=== PATIENT | male | born 1940 | race Caucasian/White ===

== ENCOUNTER 2021-03-23 09:33 | Emergency (ER) | payer MEDICARE, OTHER, SELFPAY ==
--- NOTE | ~2021-03-23 | US_ITS ---
EXAMINATION: US VENOUS ULTRASOUND WITH DOPPLER LOWER EXTREMITY, RIGHT CLINICAL INFORMATION: Pain COMPARISON: None TECHNIQUE: Ultrasound of the deep veins is performed from the hip to the calf with compression sonography and color and pulse Doppler assessment. Spectral analysis with color-flow imaging is performed. FINDINGS: There is normal venous compression and respiratory variation and augmented flow. The visualized common femoral vein, superficial femoral vein, profunda femoral vein, popliteal vein, and the trifurcation region shows no evidence of deep venous thrombosis. There is no significant popliteal fossa cyst. US/US venous duplex LE RT IMPRESSION: No DVT demonstrated in the right lower extremity.
--- NOTE | ~2021-03-23 | XR_ITS ---
EXAMINATION: XR ANKLE, RIGHT CLINICAL INFORMATION: Pain COMPARISON: None TECHNIQUE: AP, lateral, and mortise views of the right ankle. FINDINGS: The ankle mortise appears intact. No talar tilt is seen. No widening of the medial joint space is noted. There is some spurring present about the medial malleolus. Vascular calcifications are present. Calcaneal spurs at sites of insertion of a Achilles and plantar tendons noted. Small bony density seen medial aspect of the talar bone which may be vascular in nature or secondary to an avulsion injury which could be acute or chronic in nature. There is some soft tissue swelling present about the ankle. XR/XR ankle RT min 3V IMPRESSION: No definite acute fracture or dislocation of the ankle identified. Calcaneal spurs. Probable vascular calcifications or less likely avulsion injury of acute or chronic etiology medial aspect of the talar bone. Clinical correlation is suggested to site of pain.
[2021-03-23 10:30] VITALS: BP 140/59; PULSE 71; RESP 16; TEMP 35.6; O2SAT 97; BMI 25.5
--- NOTE | 2021-03-23 10:36 | ED.GENADULT ---
HPI - General Adult General Chief complaint: Extremity Injury, Lower Stated complaint: ankle injury Time Seen by Provider: 03/23/21 10:34 Source: patient Limitations: no limitations History of Present Illness HPI narrative: Patient presents to the ER complaining of right ankle pain. Patient states while walking behind his lawnmower yesterday he began to have sharp pain in the ankle heel and foot. Pain extended up to his right calf. Patient denies any overt trauma. Patient has longstanding history of hypertension hyperlipidemia and a history of COPD. Patient this time denies fever chest pain shortness of breath. Pain is 7/10 and increases with palpation and positive swelling was noted by the patient. Patient denies any history of gouty arthritis. Symptoms are [id number]. No previous episodes with this extremity in the past. Although the patient did state he is losing bone density. Related Data Previous Rx's Medication Instructions Recorded ibuprofen 400 mg tablet 400 mg PO TID PRN #20 tab 03/23/21 tramadol 50 mg tablet 50 mg PO BID PRN #10 tab 03/23/21 Allergies Allergy/AdvReac Type Severity Reaction Status Date / Time codeine Allergy Unknown Verified 03/23/21 10:30 Review of Systems Review of Systems: Constitutional : No Weight loss, No Fever, No Chills, ENT: Denies sore throat Cardiovascular : No Chest Pain, No SOB, No Dyspnea on Exertion Respiratory : No Cough, No Sputum, No Wheezing Gastrointestinal : No Nausea, No Vomiting, No Diarrhea Musculoskeletal : Positive right ankle foot and calf pain. Positive swelling. Neuro : No Weakness, No Numbness, No Paresthesias, No Loss of Consciousness, No Dizziness, No Headache Psych : No Anxiety/Panic, No Depression, No SI/HI/AH/VH, No Social Issues, Heme/Lymph: No Bruising, No Bleeding,No Lymphadenopathy Endocrine : No Polyuria, No Polydipsia, No Temperature Intolerance PMF Past Medical History Attestation statement: The following information was validated with the patient. Medical History COPD (chronic obstructive pulmonary disease) High cholesterol HTN (hypertension) Social History Social History Advance Directives: No Advance Directives Information Provided: No Physical Exam Vital Signs: Vital Signs: Last Vital Signs Temp 96.1 F L 03/23/21 10:30 Pulse 71 03/23/21 10:30 Resp 16 03/23/21 10:30 BP 140/59 H 03/23/21 10:30 Pulse Ox 97 03/23/21 10:30 Body Mass Index 25.5 vital signs have been reviewed as normal and appeared to be correct. Blood pressure normal. Heart rate normal. Respiration rate normal. Temperature normal. Oxygen saturation normal. Appearance: Alert. Oriented X3. No acute distress. Head: Normal external exam. Normocephalic. Atraumatic. Eyes: PERRLA. EOMI. ENT: Pharynx normal. Uvula midline. Moist mucous membranes. Neck: Soft full range of motion, no JVD CVS: Heart regular rate and rhythm no murmurs and rubs Respiratory: Breath sounds are clear to auscultation bilaterally. No accessory muscle use noted. Abdomen: Soft nontender no rebound or guarding positive bowel sounds Back: No CVA tenderness. Full range of motion noted. Skin: Right lower extremity Minimal erythema medial aspect ankle slight edema noted no lymphangitis noted. Extremities: Positive tenderness lateral malleolus of all right ankle slight tenderness into the calf positive sensation positive pulses Neuro: Oriented X 3. No motor deficit. No sensory deficit. Reflexes normal. Course Course Course Narrative: Right ankle fracture Sprain Arthritis Right lower extremity cellulitis Right lower extremity DVT Symptoms seem to be more consistent with musculoskeletal symptoms will check duplex and right ankle x-ray Case discussed with DR Perera symptoms likely related to calcaneal spurs. Family has a equipment maintenance tech advised to follow-up. Rest ice elevation. Medical Decision Making Imaging Data ankle: Radiologist's impression: [address] [address] XRay Report Signed Patient: Dane Sousa MR#: [id number] : 1940 Acct:[id number] Age/Sex: 80 / M ADM Date: 03/23/21 Loc: HO.ED Attending Dr: Ordering Physician: Gustavo Brice Date of Service: 03/23/21 Procedure(s): XR ankle RT min 3V Accession Number(s): [id number] cc: Gustavo Brice ~ EXAMINATION: XR ANKLE, RIGHT CLINICAL INFORMATION: Pain? COMPARISON: None? TECHNIQUE: AP, lateral, and mortise views of the right ankle. FINDINGS: The ankle mortise appears intact. No talar tilt is seen. No widening of the medial joint space is noted. There is some spurring present about the medial malleolus. Vascular calcifications are present. Calcaneal spurs at sites of insertion of a Achilles and plantar tendons noted. Small bony density seen medial aspect of the talar bone which may be vascular in nature or secondary to an avulsion injury which could be acute or chronic in nature. There is some soft tissue swelling present about the ankle. XR/XR ankle RT min 3V IMPRESSION: No definite acute fracture or dislocation of the ankle identified. ? Calcaneal spurs. ? Probable vascular calcifications or less likely avulsion injury of acute or chronic etiology medial aspect of the talar bone. Clinical correlation is suggested to site of pain. Dictated By: Dino Jones MD Signed By: <Electronically signed by Dino Jones MD in [place]> 03/23/21 1108 DD/ 1035 TD/TT:? Hearing Screener: GABRIELA Venous US: Radiologist's impression: [address] [address] Ultrasound Report Signed Patient: Dane Sousa MR#: [id number] : 1940 Acct:[id number] Age/Sex: 80 / M ADM Date: 03/23/21 Loc: .ED Attending Dr: Ordering Physician: Gustavo Brice Date of Service: 03/23/21 Procedure(s): US venous duplex LE RT Accession Number(s): [id number] cc: Gustavo Brice ~ EXAMINATION:? US VENOUS ULTRASOUND WITH DOPPLER LOWER EXTREMITY, RIGHT CLINICAL INFORMATION:? Pain COMPARISON:? None TECHNIQUE: Ultrasound of the deep veins is performed from the hip to the calf with compression sonography and color and pulse Doppler assessment. Spectral analysis with color-flow imaging is performed. FINDINGS: There is normal venous compression and respiratory variation and augmented flow. The visualized common femoral vein, superficial femoral vein, profunda femoral vein, popliteal vein, and the trifurcation region shows no evidence of deep venous thrombosis. ? There is no significant popliteal fossa cyst. US/US venous duplex LE RT IMPRESSION: No DVT demonstrated in the right lower extremity. Dictated By: Lena Paul MD Signed By: <Electronically signed by Lena Paul MD in [place]> 03/23/21 1124 DD/ 1035 TD/TT:? Hearing Screener: ANDI Discharge Plan Discharge Clinical Impression: Calcaneal spur Patient Disposition: Home, Self-Care Instructions: Heel Spur (ED) Additional Instructions: It is recommended to follow up with her equipment maintenance tech Rest ice elevation Medication as directed Prescriptions: New tramadol 50 mg tablet 50 mg PO BID PRN (Reason: severe pain (scale score 7-10)) Qty: 10 RF: 0 ibuprofen 400 mg tablet 400 mg PO TID PRN (Reason: moderate pain (scale score 5-6)) Qty: 20 RF: 0
== END 2021-03-23 12:03 | disposition home or self-care (01) ==
PROVIDERS: Emergency Provider Emergency Medicine; PCP Internal Medicine
DX: M77.31 Calcaneal spur, right foot (principal); M25.571 Pain in right ankle and joints of right foot; M79.661 Pain in right lower leg; I10 Essential (primary) hypertension
CPT/HCPCS: 73610; 93971; 99283; 99284

== ENCOUNTER 2023-02-09 10:34 | Emergency (ER) | payer MEDICARE, OTHER, SELFPAY ==
--- NOTE | ~2023-02-09 | XR_ITS ---
EXAMINATION: XR CHEST CLINICAL INFORMATION: Cough and shortness of breath COMPARISON: Previous chest x-ray most recent December 2018 TECHNIQUE: 2 views of the chest were obtained. FINDINGS: The cardiac silhouette does not appear enlarged. There are increased central hilar markings suggestive of pulmonary venous redistribution. The lungs are otherwise clear. There are small bilateral pleural effusions. Findings are suggestive of mild CHF. There are degenerative changes of the spine. XR/XR chest 2V IMPRESSION: Mild CHF.
[2023-02-09 11:10] VITALS: BP 143/63; PULSE 61; RESP 20; TEMP 36; O2SAT 98; BMI 25.1
--- NOTE | 2023-02-09 11:12 | ED.GENADULT ---
HPI - General Adult General Chief complaint: General Medical Stated complaint: pneumonia ? Time Seen by Provider: 02/09/23 17:22 Source: patient, family (His ), RN notes reviewed and old records reviewed Mode of arrival: ambulatory Limitations: no limitations History of Present Illness HPI narrative: 82-year-old male presents for evaluation of shortness of breath. Patient reports a history of COPD, hypertension. He reports that 10 days ago he was diagnosed with pneumonia as he was having increased cough and shortness of breath. He reports that he did have a chest x-ray confirming pneumonia at his PCP office. He was treated with doxycycline and prednisone His symptoms have not improved. He reports that he finished all the antibiotics and steroids His symptoms are worse with lying down he also states they seem to be worse after eating pain Complains of shortness of breath and a cough Related Data Previous Rx's Medication Instructions Recorded ibuprofen 400 mg tablet 400 mg PO TID PRN moderate pain 03/23/21 (scale score 5-6) #20 tabs tramadol 50 mg tablet 50 mg PO BID PRN severe pain 03/23/21 (scale score 7-10) #10 tabs furosemide 20 mg tablet (Lasix) 20 mg PO DAILY #7 tabs 02/09/23 Allergies Allergy/AdvReac Type Severity Reaction Status Date / Time codeine Allergy Unknown Verified 03/23/21 10:30 Review of Systems Constitutional: Constitutional: Denies chills, Denies fever(s) and Reports weakness Cardiovascular: Cardiovascular: Denies chest pain, Reports dyspnea and Reports dyspnea on exertion Respiratory: Respiratory: Reports chest congestion, Reports cough, Reports dyspnea and Reports dyspnea on exertion Gastrointestinal: Gastrointestinal: Denies abdominal pain, Denies nausea and Denies vomiting Genitourinary: Genitourinary: Denies dysuria Musculoskeletal: Musculoskeletal: Denies back pain Integumentary/Breasts: Skin/Breast: Denies erythema Neurologic: Reports weakness PMFSH Past Medical History Medical History COPD (chronic obstructive pulmonary disease) High cholesterol HTN (hypertension) Social History Social History Alcohol intake: former Smoked in Last 30 Days: No Use of substances other than those prescribed or required for medical reasons: No Advance Directives: No Advance Directives Information Provided: No Physical Exam ED Vital Signs: Vital Signs - 24 hr 02/09/23 11:10 02/09/23 17:59 Temperature 96.8 F 97.7 F Pulse Rate 61 67 Respiratory Rate 20 18 Blood Pressure 143/63 H 153/75 H Pulse Oximetry 98 94 Oxygen Delivery Method Room Air Room Air BMI result Body Mass Index 25.1 Const General: healthy appearing, comfortable, no acute distress, alert and awake Nutritional Appearance: well nourished Orientation/consciousness: patient oriented x3 HENMT Head: Yes normocephalic and Yes atraumatic Eyes Eyelids: Yes eyelids normal Conjunctivae: conjunctivae normal Sclerae: sclerae normal Corneas: corneas normal Pupils: Equal, round and reactive pupils present EOM: EOMs intact bilaterally Neck Neck: Yes full ROM Resp Effort & Inspection: normal respiratory effort, able to speak in complete sentences, no audible wheezes and not labored Auscultation: clear to auscultation bilaterally Cardio Other: No significant lower extremity edema Rate: regular rate Rhythm: regular rhythm Skin General skin exam: no rashes or lesions noted and elasticity normal Neuro General: patient oriented x3 Cranial nerves: Yes Equal, round and reactive pupils present and Yes Bilaterally intact EOM present Cognition (Neuro): normal cognition Extrem Other: Moving all extremities well without any obvious deformities Course Course Course Narrative: RME performed by Silvana Colunga PA-C. Patient is an 82 year old assigned male at presenting to the emergency department with a cough and possible continued pneumonia. Patient states that 3 weeks ago he began to have a cough and was diagnosed with pneumonia, finished his antibiotics and his steroids but the cough has returned and continues to bother him. Patient states his breathing is significantly worse when he lies flat. Labs, imaging, and swabs ordered. Patient placed back in the waiting room pending room availability and results. Medications Administered Discontinued Medications Generic Name Dose Route Start Last Admin Trade Name Freq PRN Reason Stop Dose Admin Furosemide 20 mg 02/09/23 17:32 02/09/23 18:02 Furosemide 20 Mg Tablet PO 02/09/23 17:33 20 mg ONCE ONE Administration Protocol Medical Decision Making Medical Decision Making MDM Narrative: 82-year-old male presents for evaluation of increased cough, shortness of breath exertion. His workup is consistent with mild congestive heart failure. He has small bilateral pleural effusions, symptoms are worse with lying down. He is on hydrochlorothiazide but not on Lasix. Will start the patient on furosemide. His vital signs are stable, his oxygen saturation is 98% on room air. Chest x-ray does not show any evidence of persistent pneumonia. He is not wheezing on exam. He is stable for discharge Differential Diagnosis Differential Diagnoses: The differential diagnosis associated with the presentation includes Congestive heart failure Bronchitis Pneumonia Upper respiratory infection COPD Admission/Observation Consideration of admission/observation: Escalation of care including admission/observation considered Lab Data MDM Lab Attestation statement: I reviewed the patient's lab results. No leukocytosis, and mild anemia with a hemoglobin of 12.4 hematocrit of 37.2. Electrolytes and renal function within normal limits 02/09/23 11:49 02/09/23 11:14 Labs: Lab Results 02/09/23 02/09/23 02/09/23 Range/Units 11:14 11:14 11:14 WBC (4.8-10.8) X10*3/uL RBC (4.60-5.80) X10*6/uL Hgb (14.0-18.0) g/dl Hct (42.0-52.0) % MCV (80.0-98.0) fL MCH (27.0-33.0) pg MCHC (31.0-36.0) g/dl RDW (11.0-16.0) % Plt Count (160-400) X10*3/uL MPV (9.4-12.4) fL Immature Gran % (Auto) (0.0-0.4) % Neut % (Auto) (45-73) % Lymph % (Auto) (20-40) % [place] % (Auto) (2-11) % Eos % (Auto) (0-4) % Baso % (Auto) (0-2) % Lymph # (Auto) (1.2-4.9) X10*3/uL [place] # (Auto) (0.1-1.2) X10*3/uL Eos # (Auto) (0.0-0.4) X10*3/uL Baso # (Auto) (0.0-0.2) X10*3/uL Abs Immat Gran (auto) (0.00-0.03) X10*3/uL Absolute Neuts (auto) (2.0-8.3) x10*3/uL Absolute Nucleated RBC (0.0-0.012) X10*3/uL Nucleated RBC % (auto) (0.0-0.2) /100WBC VBG pH (7.32-7.43) VBG pCO2 mmHg VBG pO2 mmHg VBG HCO3 (22-26) mmol/L VBG O2 Saturation % VBG Base Excess mmol/L Sodium 135 (135-145) mmol/L Potassium 4.1 (3.3-5.1) mmol/L Chloride 101 (96-108) mmol/L Carbon Dioxide 28 (22-29) mmol/L Anion Gap 10 L (12-20) BUN 15 (9-16) mg/dL Creatinine 1.18 (0.5-1.4) mg/dL Estim Creat Clear Calc 45.8 Estimated GFR 59 Random Glucose 99 (60-115) mg/dL Calcium 9.8 (8.4-10.2) mg/dL Magnesium 2.1 (1.6-2.6) mg/dL Total Bilirubin 0.6 (0.0-1.0) mg/dL AST 21 (5-37) U/L ALT 8 (0-40) U/L Alkaline Phosphatase 68 (39-117) U/L B-Natriuretic Peptide 29 (<100) pg/mL Total Protein 8.6 H (6.5-8.0) g/dL Albumin 3.6 (3.5-5.0) g/dL COVID-19 ([facility]) (Negative) COVID-19 Clin Com Influenza Type A ([facility]) Negative (Negative) Influenza Type B ([facility]) Negative (Negative) Influenza A & B Note See Note 02/09/23 02/09/23 02/09/23 Range/Units 11:14 11:49 11:49 WBC 8.7 (4.8-10.8) X10*3/uL RBC 3.90 L (4.60-5.80) X10*6/uL Hgb 12.4 L (14.0-18.0) g/dl Hct 37.7 L (42.0-52.0) % MCV 96.7 (80.0-98.0) fL MCH 31.8 (27.0-33.0) pg MCHC 32.9 (31.0-36.0) g/dl RDW 13.3 (11.0-16.0) % Plt Count 258 (160-400) X10*3/uL MPV 11.4 (9.4-12.4) fL Immature Gran % (Auto) 0.2 (0.0-0.4) % Neut % (Auto) 71.2 (45-73) % Lymph % (Auto) 13.1 L (20-40) % [place] % (Auto) 11.8 H (2-11) % Eos % (Auto) 2.2 (0-4) % Baso % (Auto) 1.5 (0-2) % Lymph # (Auto) 1.1 L (1.2-4.9) X10*3/uL [place] # (Auto) 1.0 (0.1-1.2) X10*3/uL Eos # (Auto) 0.2 (0.0-0.4) X10*3/uL Baso # (Auto) 0.1 (0.0-0.2) X10*3/uL Abs Immat Gran (auto) 0.02 (0.00-0.03) X10*3/uL Absolute Neuts (auto) 6.2 (2.0-8.3) x10*3/uL Absolute Nucleated RBC 0.000 (0.0-0.012) X10*3/uL Nucleated RBC % (auto) 0.0 (0.0-0.2) /100WBC VBG pH 7.42 (7.32-7.43) VBG pCO2 49 mmHg VBG pO2 29 mmHg VBG HCO3 32 H (22-26) mmol/L VBG O2 Saturation 40.0 % VBG Base Excess 6.7 mmol/L Sodium (135-145) mmol/L Potassium (3.3-5.1) mmol/L Chloride (96-108) mmol/L Carbon Dioxide (22-29) mmol/L Anion Gap (12-20) BUN (9-16) mg/dL Creatinine (0.5-1.4) mg/dL Estim Creat Clear Calc Estimated GFR Random Glucose (60-115) mg/dL Calcium (8.4-10.2) mg/dL Magnesium (1.6-2.6) mg/dL Total Bilirubin (0.0-1.0) mg/dL AST (5-37) U/L ALT (0-40) U/L Alkaline Phosphatase (39-117) U/L B-Natriuretic Peptide (<100) pg/mL Total Protein (6.5-8.0) g/dL Albumin (3.5-5.0) g/dL COVID-19 ([facility]) Negative (Negative) COVID-19 Clin Com See Note Influenza Type A ([facility]) (Negative) Influenza Type B ([facility]) (Negative) Influenza A & B Note Independent Interpretation I performed an independent interpretation of an: Plain X-Ray (Small bilateral pleural effusion, right greater than left) Radiology Impression Radiologist Impression: Mild CHF Independent Historian Clinical information obtained from an independent historian. History obtained from or confirmed by: Spouse External Record Review External record reviewed: Inpatient record and Outpatient record Tests considered The following testing was considered but not selected: CT scan of the chest, but I feel that mild consider heart failure adequately explains the patient's symptoms. He is anticoagulated on Eliquis already for DVT and is not tachypneic or hypoxic Chronic Conditions Patient?s care impacted by: Hypertension Discharge Plan Discharge Clinical Impression: Congestive heart failure Patient Disposition: Home, Self-Care Instructions: Heart Failure (ED) Additional Instructions: Your chest x-ray today showed fluid in your lung consistent with congestive heart failure. We do not see any pneumonia. This will still explain your cough and shortness of breath that is worse with lying down Take Lasix 20 mg daily You may stop your hydrochlorothiazide Call your doctor 1st thing Sunday morning You can tell them that you were diagnosed with congestive heart failure We recommend that you have an outpatient echocardiogram and/or stress test. To have blood work checked next week to check your electrolytes that can be affected by the water pill Lasix Prescriptions: New furosemide [Lasix] 20 mg tablet 20 mg PO DAILY Qty: 7 0RF No Action tramadol 50 mg tablet 50 mg PO BID PRN (Reason: severe pain (scale score 7-10)) Qty: 10 0RF ibuprofen 400 mg tablet 400 mg PO TID PRN (Reason: moderate pain (scale score 5-6)) Qty: 20 0RF
[2023-02-09 12:06] LABS: Venous Blood Gas Refer to POC result
[2023-02-09 12:23] LABS: Basophils Absolute Auto 0.1 X10*3/uL (0.0-0.2); Basophils Percent Auto 1.5 % (0-2); Eosinophils Absolute Auto 0.2 X10*3/uL (0.0-0.4); Eosinophils Percent Auto 2.2 % (0-4); Hematocrit 37.7 % (42.0-52.0); Hemoglobin 12.4 g/dl (14.0-18.0); Imm Gran Abs Auto 0.02 X10*3/uL (0.00-0.03); Imm Gran Pct Auto 0.2 % (0.0-0.4); Lymphocytes Absolute Auto 1.1 X10*3/uL (1.2-4.9); Lymphocytes Percent Auto 13.1 % (20-40); MANUAL DIFF FLAG NO; Mean Corpuscular HGB Conc 32.9 g/dl (31.0-36.0); Mean Corpuscular Hemoglobin 31.8 pg (27.0-33.0); Mean Corpuscular Volume 96.7 fL (80.0-98.0); Mean Platelet Volume 11.4 fL (9.4-12.4); Monocytes Percent Auto 11.8 % (2-11); Neutrophils Absolute Auto 6.2 x10*3/uL (2.0-8.3); Neutrophils Percent Auto 71.2 % (45-73); Platelet Count 258 X10*3/uL (160-400); Red Cell Distribution Width 13.3 % (11.0-16.0); White Blood Count 8.7 X10*3/uL (4.8-10.8)
[2023-02-09 12:37] LABS: Anion Gap 10 (12-20)
[2023-02-09 12:41] LABS: Alanine Aminotransferase 8 U/L (0-40); Albumin Level 3.6 g/dL (3.5-5.0); Alkaline Phosphatase 68 U/L (39-117); Aspartate Amino Transferase 21 U/L (5-37); Bilirubin Total 0.6 mg/dL (0.0-1.0); Blood Urea Nitrogen 15 mg/dL (9-16); Calcium 9.8 mg/dL (8.4-10.2); Carbon Dioxide 28 mmol/L (22-29); Chloride 101 mmol/L (96-108); Creatinine Clr Calc Pharmacy 45.8; Estimated Glomerular Filt Rate 59; Glucose Random 99 mg/dL (60-115); Magnesium 2.1 mg/dL (1.6-2.6); Potassium 4.1 mmol/L (3.3-5.1); Sodium 135 mmol/L (135-145); Total Protein 8.6 g/dL (6.5-8.0)
[2023-02-09 12:55] LABS: B Type Natriuretic Peptide 29 pg/mL (<100)
[2023-02-09 13:47] LABS: VBG Base Excess 6.7 mmol/L; VBG HCO3 32 mmol/L (22-26); VBG pCO2 49 mmHg; VBG pH 7.42 (7.32-7.43); VBG pO2 29 mmHg
[2023-02-09 14:16] LABS: IDNOW Serial# 08D9AD1C
[2023-02-09 14:17] LABS: COVID-19 Test Negative (Negative)
[2023-02-09 14:26] LABS: IDNOW Serial# BCCEAD1C; Influenza A Negative (Negative); Influenza B2 Negative (Negative)
[2023-02-09 17:59] VITALS: BP 153/75; PULSE 67; RESP 18; TEMP 36.5; O2SAT 94
[2023-02-09] MEDS: Furosemide 20 MG TABLET PO (18:02)
--- NOTE | 2023-02-09 18:05 | PC.NURSE ---
pt a&ox3. respirations even and unlabored. skin warm pink and dry. lung sounds slightly diminished at the bases. pt reports no pain. pt blood pressure elevated. heart rate and o2 sat stable.
== END 2023-02-09 18:12 | disposition home or self-care (01) ==
PROVIDERS: Physician Assistant Medical; Emergency Provider Emergency Medicine; PCP Internal Medicine
DX: I11.0 Hypertensive heart disease with heart failure (principal); I50.9 Heart failure, unspecified; R06.02 Shortness of breath; J44.9 Chronic obstructive pulmonary disease, unspecified; Z79.899 Other long term (current) drug therapy
CPT/HCPCS: 71046; 80053; 82803; 83735; 83880; 85025; 87502; 87635; 99283; 99284